=== PATIENT | female | born 1945 | race Caucasian/White ===

== ENCOUNTER 2020-06-13 13:21 | Outpatient (CLI) | payer MEDICARE, SELFPAY ==
--- NOTE | 2020-06-13 13:37 | XR_ITS ---
WS: [id number] DEXA (DUAL ENERGY X-RAY ABSORPTIOMETRY) Bone mineral density was performed using a [employer] machine. HISTORY: POST MENOPAUSAL COMPARISON: None available. Lumbar spine BMD (L1-L4): 1.179 g/cm2 T score: 0.0 Z score: 1.5 Total hip BMD: Left: 0.901 g/cm2. T score: -0.9 Z score: 0.6 Right: 0.945 g/cm2. T score: -0.5 Z score: 1.0 10 year probability of a major osteoporotic fracture is 9%. XR/XR DEXA axial skeleton* [id number] IMPRESSION: NORMAL BONE MINERAL DENSITY based upon the WHO classification for females.
== END 2020-06-13 13:22 | disposition home or self-care (01) ==
LOC: RADWPI 13:27
PROVIDERS: Family Provider Family Medicine; PCP Family Medicine; Visit Provider Family Medicine
DX: Z78.0 Asymptomatic menopausal state (principal)
CPT/HCPCS: 77080

== ENCOUNTER 2020-07-18 09:27 | Outpatient (CLI) | payer MEDICARE, SELFPAY ==
[2020-07-18 12:34] LABS: Basophils % 0.5 %; Eosinophils % 0.2 %; Hematocrit 37.7 % (37.0-47.0); Hemoglobin 11.6 g/dL (11.5-15.3); Lymphocytes # 1.9 10^3/uL (0.8-4.8); Lymphocytes % 32.5 %; Mean Corpuscular HGB Conc 30.8 g/dL (30.0-36.0); Mean Corpuscular Hemoglobin 28.4 pg (28.0-34.0); Mean Corpuscular Volume 92.2 fL (81-99); Monocytes # 0.5 10^3/uL (0.2-0.9); Monocytes % 8.4 %; Neutrophils # 3.32 10^3/uL (1.8-7.7); Neutrophils % 58.2 %; Nucleated Red Blood Cells % 0 %; Platelet Count 279 10^3/cmm (130-400); Red Blood Count 4.09 10^6/uL (4.1-5.3); Red Cell Distribution Width 13.6 % (12.1-15.1); White Blood Count 5.7 10^3/uL (4.0-10.0)
[2020-07-18 12:54] LABS: Alanine Aminotransferase 20 U/L (0-33); Albumin Level 4.4 g/dL (3.5-5.2); Alkaline Phosphatase 103 IU/L (35-105); Chloride 106 mmol/L (98-107); Immunoglobulin IGA 81 mg/dL (70-400); Immunoglobulin IGG 670 mg/dL (700-1600); Lactate Dehydrogenase 126 U/L (135-214); Potassium 4.4 mmol/L (3.5-5.1); Sodium 141 mmol/L (136-145)
[2020-07-18 14:15] LABS: Anion Gap 16.4 (5-19); Aspartate Amino Transferase 25 U/L (0-32); Blood Urea Nitrogen 20 mg/dL (8-23); Calcium 10.1 mg/dL (8.5-10.5); Carbon Dioxide 23 mmol/L (22-29); Globulin 4.4 g/dL (1.3-4.6); Glucose 91 mg/dL (65-115); Osmolality Calculated 294 mOsm/kg (285-295); Total Bilirubin 0.4 mg/dL (0.15-1.2); Total Protein 8.8 g/dL (6.6-8.7)
[2020-07-18 15:20] LABS: Erythrocyte Sedimentation Rate 111 mm/hr (0-15)
--- NOTE | 2020-07-18 17:26 | ONC CON_ITS ---
Dr. Dove New Patient Note Patient: Naima Chacon Unit #: [id number]: [id number] Dicatated By: Marty Dove M.D.Date of Visit: Jul 18, 2020 Onc MED New Patient/Consult Referring Physician: Dr. KEI MURRY M.D. Chief Complaint: Monoclonal gammopathy. 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 This patient has hyperlipidemia and GERD. She has been in excellent general health. On her routine laboratory studies she was found to have elevations of the total protein and calculated serum globulin. Further evaluation with protein electrophoresis on 05/15/2020 showed a M spike quantitating at 1.9 g/dL. On immunoelectrophoresis, it was confirmed to be an IgM kappa monoclonal protein. Her surim free light chain assay showed normal kappa free light chain at 5.39 mg/L but with elevated kappa/lambda ratio at 18.59. Her CBC at that time showed normal hemoglobin at 12.4 g with hematocrit 37.4%. The white blood cell count was 7600 and the platelet count was 313,000. She has been feeling good generally. She has good energy and she has normal activity. ECOG score is 0. Appetite also has been good. Her weight is been stable. She has no fever, night sweats, or hot flashes. She does not complain of headache or dizziness. She has no shortness of breath, cough, or chest pain. She has no GI or complaints. She occasionally has some low back pain. She has no other joint or bone pain. She has no focal neurologic symptoms. Past Medical History: Her medical history includes fatty liver, gastroesophageal reflux disease, and hypercholesterolemia. Past Surgical History: Her surgical/procedural history includes bladder sling, colonoscopy in 2008, and tubal ligation in 1980. Medications: Docusate Sodium 1 Tablet (of 100 mg) Oral daily, Famotidine 1 Tablet (of 10 mg) Oral daily, Rosuvastatin Calcium 1 Tablet (of 5 mg) Oral daily Allergies: Tylenol with Codeine #3 Social History: Ms. Chacon is . She has a history of smoking 2 packs of cigarettes daily beginning at age 21. She also had alcohol use at that time. She quit both at age 30. Family History: Father in his 60s with a heart attack. Mother with lung cancer at age 82. A half-brother has diabetes. A half-sister is in good health. Review Of Symptoms: Constitutional - She is feeling good and her energy is good. She has normal activity without restrictions. Her appetite is good and weight is stable. No fever, night sweats, or hot flashes. ECOG score is 0, Eyes - No change in vision, ENMT - No hearing loss or tinnitus. No sinus congestion/drainage. No mouth sores. No sore throat or difficulty swallowing, Hematologic/Lymphatic - No abnormal bruising or bleeding, Respiratory - No shortness of breath. No cough. No pleuritic pain or hemoptysis, Cardiovascular - No angina pain. No palpitations, Gastrointestinal - No nausea or vomiting. Her acid reflux is adequately managed with medication.. No diarrhea or constipation. No blood in the stool or black stools, Genitourinary (F) - No dysuria or hematuria. No urinary frequency. No urgency or incontinence, Musculoskeletal - She occasionally has low back pain. No other joint or bone pain, Integumentary - No skin complications, Neurologic - No headache or dizziness. No numbness or tingling. No other focal neurologic symptoms, Psychiatric - No anxiety or depression. No insomnia. Vital Signs: Performed on Jul 18, 2020 11:26: 0, 24.33, 1.86 sq.m, 68.00 in, 97 %, 62 /min, 18 /min, 149/69 mm(hg) (HIGH), 98.0 F (LOW), and 160.0 lbs (HIGH). Physical Examination: Constitutional - She appears to be in good general health, Eyes - Sclerae nonicteric. Conjunctivae clear, ENMT - No lesions noted in the oral cavity, Neck - No mass or thyromegaly, Hematologic/Lymphatic - No cervical, clavicular, or axillary adenopathy, Respiratory - Lungs are clear with good air movement bilaterally, Cardiovascular - Heart rhythm is regular. There is no murmur, gallop, or rub noted, Abdomen - Soft and non-tender. Liver and spleen are not enlarged. There is no abdominal mass or ascites noted and there is no inguinal adenopathy, Back/Spine - No spine or CVA tenderness noted, Extremities - No edema. Pedal pulses are palpable bilaterally, Integumentary - No rashes. No suspicious skin lesions noted, Neurologic - No focal neurologic deficits noted. Impression: 1. Patient with IgM monoclonal gammopathy of undetermined significance. She is not symptomatic. 2. Hyperlipidemia. 3. GERD. 4. Fatty infiltration of the liver. Plan: The laboratory findings were reviewed with the patient and we discussed the clinical implications. She has an IgM monoclonal protein in the serum. She is completely asymptomatic, and the significance is uncertain. We discussed the fact that it can be associated with Waldenstrom's macroglobulinemia or other myeloproliferative disorders, but monoclonal proteins can also be seen in association with inflammatory conditions or and otherwise healthy individuals. At least initially I will repeat her serum protein electrophoresis along with serum free light chain assay, quantitative immunoglobulin levels, CBC, comprehensive metabolic profile, sed rate, and LDH level. Depending on those results, I will likely then schedule her for CT scans to screen for lymphadenopathy. In the absence of any clinical evidence of lymphoma, I will likely then just follow on observation/expectant management, as I am not inclined to do a bone marrow if she is completely asymptomatic. Signed By: Marty Dove M.D. <<Signature on File>>
[2020-07-19 08:17] LABS: PROTEIN, TOTAL 8.5 g/dL (6.1-8.1)
[2020-07-19 12:48] LABS: ABNORMAL PROTEIN BAND 1 1.9 g/dL (NONE DETECTED); ALBUMIN 4.3 g/dL (3.8-4.8); ALPHA 1 GLOBULIN 0.3 g/dL (0.2-0.3); ALPHA 2 GLOBULIN 0.9 g/dL (0.5-0.9); BETA 1 GLOBULIN 0.4 g/dL (0.4-0.6); BETA 2 GLOBULIN 0.3 g/dL (0.2-0.5); GAMMA GLOBULIN 2.3 g/dL (0.8-1.7)
[2020-07-19 16:17] LABS: KAPPA/LAMBDA LIGHT CHAINS FREE 2.84 (0.26-1.65); LAMBDA LIGHT CHAIN, FREE, SERU 7.4 mg/L (5.7-26.3)
== END 2020-07-18 09:28 | disposition home or self-care (01) ==
PROVIDERS: PCP Family Medicine; Visit Provider Internal Medicine Medical Oncology
DX: D47.2 Monoclonal gammopathy (principal); E78.5 Hyperlipidemia, unspecified; K21.9 Gastro-esophageal reflux disease without esophagitis; K76.0 Fatty (change of) liver, not elsewhere classified; Z87.891 Personal history of nicotine dependence
CPT/HCPCS: 80053; 82784; 83615; 83883; 84155; 84165; 85025; 85651; 99205

== ENCOUNTER 2020-08-01 11:57 | Outpatient (CLI) | payer MEDICARE, SELFPAY ==
--- NOTE | 2020-08-01 12:14 | CT_ITS ---
WS: [id number] CT CHEST, ABDOMEN, AND PELVIS TECHNIQUE: Contrast-enhanced CT of the chest, abdomen, and pelvis with coronal and sagittal reformatt ed images. CLINICAL INFORMATION: LYMPHOPROLIFERATIVE COMPARISON: None. DLP: [address] scans at [facility] use at least one of these dose optimization techniques: automat ed exposure control; mA and/or kV adjustment per patient size (includes targeted exams where dose is matched to clinical indication); or iterative reconstruction. CT CHEST: Mild chronic emphysematous changes. No acute pulmonary infiltrates. No consolidation or pleural fluid . Slight atelectasis in the lung bases. No mediastinal or hilar lymphadenopathy. Small upper pole thy roid nodules the largest measuring 4 mm. Normal caliber thoracic aorta. Aortic calcification. Proxim al main pulmonary arteries are normal. No axillary lymphadenopathy. CT ABDOMEN AND PELVIS: Mild diffuse fatty infiltration liver. Portal veins and splenic vein are patent. Normal GE junction. Gallbladder is contracted. Adrenal glands are normal. Right renal cyst measuring 2.5 CM. Left peripel yancy renal cyst. Normal pancreas. Normal spleen. Fat-containing umbilical hernia. Sigmoid diverticulosis. No evidence of acute diverticulitis. Scattered stool in the colon. No evidenc e of small or large bowel obstruction. Normal appendix. Normal caliber abdominal aorta. No periaortic or pelvic lymphadenopathy. No inguinal lymphadenopathy. CT/CT chest abd pel w con* IMPRESSION: 1. No evidence of metastatic disease in the chest abdomen or pelvis. 2. Lungs are well aerated. No acute pulmonary infiltrates. 3. No adenopathy in the abdomen or pelvis. 4. Mild diffuse fatty infiltration of the liver. 5. Right renal cyst measuring 2.5 cm. 6. Normal caliber abdominal aorta. 7. Incidental fat-containing umbilical hernia. 8. Sigmoid diverticulosis.
[2020-08-01] MEDS: iohexol 300 mg/mL 50 mL Btl PO (13:52)
[2020-08-01] MEDS: iodixanol 320 mg/mL 100mL Btl IV (13:56)
== END 2020-08-01 11:58 | disposition home or self-care (01) ==
LOC: RADWPI 12:02
PROVIDERS: PCP Family Medicine; Visit Provider Internal Medicine Medical Oncology
DX: D47.2 Monoclonal gammopathy (principal); D47.9 Neoplasm of uncertain behavior of lymphoid, hematopoietic and related tissue, unspecified; K76.0 Fatty (change of) liver, not elsewhere classified; N28.1 Cyst of kidney, acquired; K42.9 Umbilical hernia without obstruction or gangrene; K57.30 Diverticulosis of large intestine without perforation or abscess without bleeding
CPT/HCPCS: 71260; 74177; Q9967

== ENCOUNTER 2020-08-09 10:10 | Outpatient (CLI) | payer MEDICARE, SELFPAY ==
[2020-08-09 11:02] LABS: Basophils % 0.7 %; Eosinophils % 0.2 %; Hematocrit 34.9 % (37.0-47.0); Lymphocytes # 1.8 10^3/uL (0.8-4.8); Lymphocytes % 32.5 %; Mean Corpuscular HGB Conc 31.5 g/dL (30.0-36.0); Mean Corpuscular Hemoglobin 28.9 pg (28.0-34.0); Mean Corpuscular Volume 91.8 fL (81-99); Monocytes # 0.6 10^3/uL (0.2-0.9); Monocytes % 10.1 %; Neutrophils # 3.13 10^3/uL (1.8-7.7); Neutrophils % 56.1 %; Nucleated Red Blood Cells % 0 %; Platelet Count 262 10^3/cmm (130-400); Red Cell Distribution Width 13.3 % (12.1-15.1); White Blood Count 5.6 10^3/uL (4.0-10.0)
[2020-08-09 11:45] LABS: Erythrocyte Sedimentation Rate 104 mm/hr (0-15)
[2020-08-09 11:50] LABS: Alanine Aminotransferase 25 U/L (0-33); Albumin Level 4.1 g/dL (3.5-5.2); Alkaline Phosphatase 113 IU/L (35-105); Anion Gap 13.1 (5-19); Aspartate Amino Transferase 23 U/L (0-32); Blood Urea Nitrogen 23 mg/dL (8-23); Calcium 9.3 mg/dL (8.5-10.5); Carbon Dioxide 26 mmol/L (22-29); Chloride 104 mmol/L (98-107); Globulin 3.8 g/dL (1.3-4.6); Glucose 102 mg/dL (65-115); Iron 76 ug/dL (37-145); Osmolality Calculated 292 mOsm/kg (285-295); Percent Saturation 29.9 % (20-50); Potassium 4.1 mmol/L (3.5-5.1); Sodium 139 mmol/L (136-145); Total Bilirubin 0.4 mg/dL (0.15-1.2); Total Iron Binding Capacity 254 mcg/dl; Total Protein 7.9 g/dL (6.6-8.7); Unsaturated Iron Binding 178 ug/dL (112-347); Vitamin B12 467 pg/mL (232-1245)
[2020-08-10 08:58] LABS: PROTEIN, TOTAL 7.7 g/dL (6.1-8.1)
[2020-08-10 12:33] LABS: ABNORMAL PROTEIN BAND 1 1.7 g/dL (NONE DETECTED); ALBUMIN 3.9 g/dL (3.8-4.8); ALPHA 1 GLOBULIN 0.3 g/dL (0.2-0.3); ALPHA 2 GLOBULIN 0.8 g/dL (0.5-0.9); BETA 1 GLOBULIN 0.4 g/dL (0.4-0.6); BETA 2 GLOBULIN 0.3 g/dL (0.2-0.5)
== END 2020-08-09 10:11 | disposition home or self-care (01) ==
LOC: ONCMED 10:12
PROVIDERS: PCP Family Medicine; Visit Provider Internal Medicine Medical Oncology
DX: D47.2 Monoclonal gammopathy (principal); E78.00 Pure hypercholesterolemia, unspecified; E78.5 Hyperlipidemia, unspecified; K21.9 Gastro-esophageal reflux disease without esophagitis; K76.0 Fatty (change of) liver, not elsewhere classified
CPT/HCPCS: 36415; 80053; 82607; 83010; 83540; 83550; 84155; 84165; 85025; 85045; 85651

== ENCOUNTER 2020-08-22 06:16 | Outpatient (CLI) | payer MEDICARE, SELFPAY ==
--- NOTE | 2020-08-22 18:10 | ONC FU_ITS ---
Dr. Dove Patient Follow-Up Note Patient: Naima Chacon Unit #: [id number]: [id number] Dicatated By: Marty Dove M.D.Date of Visit:Aug 22, 2020 Onc Med Follow-up/Prog Note Chief Complaint: IgM monoclonal gammopathy. 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 She has been in excellent general health. On her routine laboratory studies she was found to have elevations of the total protein and calculated serum globulin. Further evaluation with protein electrophoresis on 05/15/2020 showed an M spike quantitating at 1.9 g/dL. On immunoelectrophoresis, it was confirmed to be an IgM kappa monoclonal protein. Her serum free light chain assay showed normal kappa free light chain at 5.39 mg/L but with elevated kappa/lambda ratio at 18.59. Her CBC at that time showed normal hemoglobin at 12.4 g with hematocrit 37.4%. The white blood cell count was 7600 and the platelet count was 313,000. I had seen her initially on 07/18/2020. Her CBC showed slightly low hemoglobin at 11.6 g with white blood cell count 5700 and platelet count 279,000. Her sed rate was significantly elevated at 111 mm/hour. Comprehensive metabolic profile showed borderline renal function with BUN 20 and creatinine 1.0 mg/dL. Calcium was 10.1 mg/dL with albumin 4.3 g/dL. The LDH was normal at 126 U/L. Her protein electrophoresis again showed monoclonal protein quantitating at 1.9 g/dL. Her quantitative immunoglobulin levels included IgM elevated at 2854 mg/dL, IgG slightly low at 670 mg/dL, and IgA normal at 81 mg/dL. She was not overtly symptomatic, I had initially recommended observation/expectant management. She is seen now for a follow-up visit. She is feeling good generally. She has good energy and activity tolerance. Her ECOG score is 0. She had made some dietary changes due to borderline diabetes, and she has had some weight loss with that. She does not have fever, night sweats, or hot flashes. She has no shortness of breath, cough, or chest pain. She has no GI or complaints. She sees a chiropractor once a month for problems with her neck and hip, though she is not having any joint or bone pain at this time. She does not complain of headache or dizziness, and she has no focal neurologic symptoms. Medications: Docusate Sodium 1 Tablet (of 100 mg) Oral daily, Famotidine 1 Tablet (of 10 mg) Oral daily, Rosuvastatin Calcium 1 Tablet (of 5 mg) Oral daily Allergies: Tylenol with Codeine #3 Review of Systems: Constitutional - She has good energy and activity tolerance. Her appetite is good. She has had weight loss due to dietary changes. No fever, night sweats, or hot flashes. ECOG score is 0, ENMT - No sinus congestion/drainage. No mouth sores. No sore throat or difficulty swallowing, Hematologic/Lymphatic - No abnormal bruising or bleeding, Respiratory - No shortness of breath. No cough. No pleuritic pain or hemoptysis, Cardiovascular - No angina pain. No palpitations, Gastrointestinal - No nausea or vomiting. No heartburn or acid reflux. No diarrhea or constipation. No blood in the stool or black stools, Genitourinary (F) - No dysuria or hematuria. No urinary frequency. No urgency or incontinence, Musculoskeletal - She sees a chiropractor once a month for problems with her neck and both hips, though she currently is not having any joint or bone pain, Integumentary - No skin rash, Neurologic - No headache or dizziness. No numbness or tingling. No other focal neurologic symptoms, Psychiatric - No anxiety or depression. No insomnia. Vital Signs: Performed on Aug 22, 2020 14:21 Height - 68.00 in Weight - 158.6 lbs (LOW) BSA - 1.85 sq.m BMI - 24.12 Temperature - 98.0 F (LOW) Pulse - 67 /min Respiration - 18 /min BP - 147/63 mm(hg) (HIGH) O2 Sat - 99 % Pain - 0 Physical Examination: Constitutional - Good generally, Eyes - Sclerae nonicteric. Conjunctivae clear, ENMT - No lesions noted in the oral cavity, Hematologic/Lymphatic - No cervical, clavicular, or axillary adenopathy, Respiratory - Lungs are clear with good air movement bilaterally, Cardiovascular - Heart rhythm is regular. There is no murmur, gallop, or rub noted, Abdomen - Soft. Liver and spleen are not enlarged. There is no abdominal mass or ascites noted and there is no inguinal adenopathy, Extremities - No edema, Neurologic - No focal neurologic deficits noted. Lab/Imaging: Test performed on Aug 09, 2020 10:47 Iron 76 mcg/dL Sodium 139 mmol/L Vitamin B12 467 pg/mL Iron Binding Capacity (TIBC) 254 mcg/dl Potassium 4.1 mmol/L % Iron Saturation 29.9 % Chloride 104 mmol/L CO2 26 mmol/L UIBC 178 mcg/dL Anion Gap 13.1 BUN 23 mg/dL Creatinine 0.9 mg/dL Cr Clearance (Est) 64.7400 mL/min Glucose 102 mg/dL Osmolality - Calculated 292 mOsm/kg Calcium 9.3 mg/dL Protein, Total 7.9 g/dL Albumin 4.1 g/dL Globulin 3.8 g/dL Bilirubin, Total 0.4 mg/dL ALT (SGPT) 25 U/L AST (SGOT) 23 U/L Alkaline Phosphatase 113 IU/L ESR (Sed Rate) 104 mm/hr Retic Count % 1.0900 % WBC 5.6 10 3/uL RBC 3.80 10 6/uL HGB 11.0 g/dL HCT 34.9 % MCV 91.8 fL MCH 28.9 pg MCHC 31.5 g/dL RDW 13.3 % Platelet Count 262 10 3/cmm MPV 10.0 fL Neutrophils 3.13 10 3/uL Lymphocytes 1.8 10 3/uL Monocytes 0.6 10 3/uL Eosinophils 0.0 10 3/uL Basophils 0.0 10 3/uL Neutrophil % 56.1 % Lymphocyte % 32.5 % Monocyte % 10.1 % Eosinophil % 0.2 % Basophils % 0.7 % NRBC % 0 % Staging CT scans on 08/01/2020 showed fatty infiltration of the liver. The spleen appeared normal. There was no lymphadenopathy or other evidence of malignancy in the chest, abdomen, and pelvis. Impression: 1. Patient with IgM monoclonal gammopathy of undetermined significance. She is not symptomatic. 2. Hyperlipidemia. 3. GERD. 4. Fatty infiltration of the liver. The patient has IgM monoclonal gammopathy of undetermined significance. She is not symptomatic, and there has not been any increase in the quantitative M protein since the initial protein electrophoresis. However, she is now mildly anemic and she has a very high sed rate, so this may be clinically significant. Her staging CT scans of the chest, abdomen, and pelvis show lymphadenopathy, hepatosplenomegaly, or other evidence of malignancy. Plan: As she is not symptomatic, I am going to continue to follow with observation/expectant management. However, if there is further decrease in her hemoglobin/hematocrit levels or if she otherwise develops symptoms, I will plan further evaluation with bone marrow aspiration/biopsy. At least for she will just be scheduled for a follow-up visit in 3 months. Signed By: Marty Dove M.D. <<Signature on File>>
== END 2020-08-22 06:17 | disposition home or self-care (01) ==
LOC: ONCMED 06:18
PROVIDERS: PCP Family Medicine; Visit Provider Internal Medicine Medical Oncology
DX: D47.2 Monoclonal gammopathy (principal); D64.9 Anemia, unspecified; R70.0 Elevated erythrocyte sedimentation rate; E78.5 Hyperlipidemia, unspecified; K21.9 Gastro-esophageal reflux disease without esophagitis; K76.0 Fatty (change of) liver, not elsewhere classified
CPT/HCPCS: G0463

== ENCOUNTER 2020-09-25 08:47 | Outpatient (CLI) | payer MEDICARE, SELFPAY ==
--- NOTE | 2020-09-25 08:51 | MM_ITS ---
WS: [id number] BILATERAL DIGITAL SCREENING MAMMOGRAPHY WITH CAD CLINICAL INFORMATION: SCREENING HISTORY: Screening mammogram. No current complaints. COMPARISON: TECHNIQUE: Bilateral CC and MLO views. FINDINGS: Scattered fibroglandular densities bilaterally. No suspicious focal mass, asymmetry, calcifications, or architectural distortion. No evidence of malignancy. Lucent centered calcifications. Vascular calc ifications. MM/[place] [id number] IMPRESSION: BI-RADS: 2-Benign FOLLOW UP: 1 Year Follow-up Recommend return to annual screening mammography.
== END 2020-09-25 08:48 | disposition home or self-care (01) ==
LOC: RADSHAW 08:49
PROVIDERS: PCP Family Medicine; Visit Provider Internal Medicine Medical Oncology
DX: Z12.31 Encounter for screening mammogram for malignant neoplasm of breast (principal)
CPT/HCPCS: 77067

== ENCOUNTER 2020-11-21 07:35 | Outpatient (CLI) | payer MEDICARE, SELFPAY ==
[2020-11-21 08:48] LABS: Basophils % 0.7 %; Eosinophils % 0.5 %; Hemoglobin 11.8 g/dL (11.5-15.3); Lymphocytes # 1.4 10^3/uL (0.8-4.8); Lymphocytes % 32.5 %; Mean Corpuscular HGB Conc 31.9 g/dL (30.0-36.0); Mean Corpuscular Hemoglobin 28.6 pg (28.0-34.0); Mean Corpuscular Volume 89.8 fL (81-99); Mean Platelet Volume 9.9 fL (7.4-10.4); Monocytes # 0.4 10^3/uL (0.2-0.9); Monocytes % 8.6 %; Neutrophils # 2.47 10^3/uL (1.8-7.7); Neutrophils % 57.2 %; Nucleated Red Blood Cells % 0 %; Platelet Count 260 10^3/cmm (130-400); Red Blood Count 4.12 10^6/uL (4.1-5.3); Red Cell Distribution Width 12.9 % (12.1-15.1); White Blood Count 4.3 10^3/uL (4.0-10.0)
[2020-11-21 08:50] LABS: LAB Peripheral Smear Sent for Review
[2020-11-21 09:33] LABS: Alanine Aminotransferase 23 U/L (0-33); Alkaline Phosphatase 117 IU/L (35-105); Anion Gap 12.1 (5-19); Aspartate Amino Transferase 26 U/L (0-32); Blood Urea Nitrogen 18 mg/dL (8-23); Calcium 9.3 mg/dL (8.5-10.5); Carbon Dioxide 26 mmol/L (22-29); Chloride 105 mmol/L (98-107); Globulin 4.2 g/dL (1.3-4.6); Glucose 91 mg/dL (65-115); Lactate Dehydrogenase 124 U/L (135-214); Osmolality Calculated 289 mOsm/kg (285-295); Potassium 4.1 mmol/L (3.5-5.1); Sodium 139 mmol/L (136-145); Total Bilirubin 0.4 mg/dL (0.15-1.2); Total Protein 8.2 g/dL (6.6-8.7)
[2020-11-21 10:26] LABS: Erythrocyte Sedimentation Rate 99 mm/hr (0-15)
[2020-11-21 11:28] LABS: Estmated Average Glucose 105; Hemoglobin A1C 5.3 % (4.0-6.0)
[2020-11-21 11:30] LABS: Immunoglobulin IGA 71 mg/dL (70-400); Immunoglobulin IGG 612 mg/dL (700-1600)
[2020-11-21 11:47] LABS: Immunoglobulin IGM 2776 mg/dL (40-230)
[2020-11-22 10:33] LABS: PROTEIN, TOTAL 7.5 g/dL (6.1-8.1)
[2020-11-22 14:38] LABS: ABNORMAL PROTEIN BAND 1 1.7 g/dL (NONE DETECTED); ALBUMIN 3.8 g/dL (3.8-4.8); ALPHA 1 GLOBULIN 0.3 g/dL (0.2-0.3); ALPHA 2 GLOBULIN 0.8 g/dL (0.5-0.9); BETA 1 GLOBULIN 0.4 g/dL (0.4-0.6); BETA 2 GLOBULIN 0.3 g/dL (0.2-0.5)
== END 2020-11-21 07:36 | disposition home or self-care (01) ==
LOC: ONCMED 07:38
PROVIDERS: PCP Family Medicine; Visit Provider Internal Medicine Medical Oncology
DX: D47.2 Monoclonal gammopathy (principal); E11.9 Type 2 diabetes mellitus without complications
CPT/HCPCS: 36415; 80053; 82784; 83036; 83615; 84155; 84165; 85025; 85651

== ENCOUNTER 2020-12-19 07:57 | Outpatient (CLI) | payer MEDICARE, SELFPAY ==
[2020-12-19 08:35] LABS: Basophils % 0.8 %; Eosinophils # 0.1 10^3/uL (0.0-0.8); Hematocrit 37.7 % (37.0-47.0); Hemoglobin 11.9 g/dL (11.5-15.3); Lymphocytes # 1.5 10^3/uL (0.8-4.8); Lymphocytes % 29.4 %; Mean Corpuscular HGB Conc 31.6 g/dL (30.0-36.0); Mean Corpuscular Hemoglobin 28.3 pg (28.0-34.0); Mean Corpuscular Volume 89.5 fL (81-99); Mean Platelet Volume 9.5 fL (7.4-10.4); Monocytes # 0.4 10^3/uL (0.2-0.9); Monocytes % 8.9 %; Neutrophils # 2.95 10^3/uL (1.8-7.7); Neutrophils % 59.7 %; Nucleated Red Blood Cells % 0 %; Platelet Count 300 10^3/cmm (130-400); Red Blood Count 4.21 10^6/uL (4.1-5.3); Red Cell Distribution Width 13.2 % (12.1-15.1); White Blood Count 4.9 10^3/uL (4.0-10.0)
[2020-12-19 08:59] LABS: Alanine Aminotransferase 18 U/L (0-33); Albumin Level 3.9 g/dL (3.5-5.2); Alkaline Phosphatase 121 IU/L (35-105); Anion Gap 13.2 (5-19); Aspartate Amino Transferase 19 U/L (0-32); Blood Urea Nitrogen 20 mg/dL (8-23); Carbon Dioxide 26 mmol/L (22-29); Chloride 103 mmol/L (98-107); Chol HDL Ratio 2.07 mg/dL (0.0-4.40); Cholesterol 155 mg/dL (0-200); Globulin 4.5 g/dL (1.3-4.6); Glucose 90 mg/dL (65-115); HDL Cholesterol 75 mg/dL (60-100); Immunoglobulin IGA 82 mg/dL (70-400); Immunoglobulin IGG 617 mg/dL (700-1600); LDL Cholesterol Calculated 62 mg/dL (50-129); LDL HDL Ratio 0.83 RATIO (0.00-3.22); Osmolality Calculated 288 mOsm/kg (285-295); Potassium 4.2 mmol/L (3.5-5.1); Sodium 138 mmol/L (136-145); Total Bilirubin 0.3 mg/dL (0.15-1.2); Total Protein 8.4 g/dL (6.6-8.7); Triglycerides 89 mg/dL (0-150)
[2020-12-19 09:03] LABS: Estmated Average Glucose 91; Hemoglobin A1C 4.8 % (4.0-6.0)
[2020-12-19 09:11] LABS: Immunoglobulin IGM 2709 mg/dL (40-230)
== END 2020-12-19 07:58 | disposition home or self-care (01) ==
PROVIDERS: PCP Family Medicine; Visit Provider Internal Medicine Medical Oncology
DX: D47.2 Monoclonal gammopathy (principal)
CPT/HCPCS: 80053; 80061; 82784; 83036; 85025

== ENCOUNTER 2020-12-27 06:07 | Outpatient (CLI) | payer MEDICARE, SELFPAY ==
--- NOTE | 2020-12-27 21:09 | ONC FU_ITS ---
Dr. Dove Patient Follow-Up Note Patient: Naima Chacon Unit #: [id number]: [id number] Dicatated By: Marty Dove M.D.Date of Visit:Dec 27, 2020 Onc Med Follow-up/Prog Note Chief Complaint: IgM monoclonal gammopathy. History of Present Illness: This is a 75 year-old woman with IgM monoclonal gammopathy. She has been in excellent general health. On her routine laboratory studies she was found to have elevations of the total protein and calculated serum globulin. Further evaluation with protein electrophoresis on 05/15/2020 showed an M spike quantitating at 1.9 g/dL. On immunoelectrophoresis, it was confirmed to be an IgM kappa monoclonal protein. Her serum free light chain assay showed normal kappa free light chain at 5.39 mg/L but with elevated kappa/lambda ratio at 18.59. Her CBC at that time showed normal hemoglobin at 12.4 g with hematocrit 37.4%. The white blood cell count was 7600 and the platelet count was 313,000. I had seen her initially on 07/18/2020. Her CBC showed slightly low hemoglobin at 11.6 g with white blood cell count 5700 and platelet count 279,000. Her sed rate was significantly elevated at 111 mm/hour. Comprehensive metabolic profile showed borderline renal function with BUN 20 and creatinine 1.0 mg/dL. Calcium was 10.1 mg/dL with albumin 4.3 g/dL. The LDH was normal at 126 U/L. Her protein electrophoresis again showed monoclonal protein quantitating at 1.9 g/dL. Her quantitative immunoglobulin levels included IgM elevated at 2854 mg/dL, IgG slightly low at 670 mg/dL, and IgA normal at 81 mg/dL. Her CT scans of the chest, abdomen, and pelvis on 08/01/2020 showed mild diffuse fatty infiltration of the liver, but there was no evidence of lymphadenopathy or hepatosplenomegaly. As she was not overtly symptomatic, I had initially recommended observation/expectant management. On her follow-up laboratory studies on 11/21/2000 she remained mildly anemic with hemoglobin 11.8 g and hematocrit 37%. The white blood cell count was 4300 and the platelet count was 260,000. Sed rate remains significantly elevated at 99 mm/h. LDH was normal at 124 U/L. Protein electrophoresis showed stable M protein at 1.7 g/dL. Her quantitative immunoglobulin levels showed IgM also stable at 2776 mg/dL. She is seen now for a follow-up visit. She has been feeling good generally. She has normal energy and activity tolerance. ECOG score is 0. She has good appetite. She has not had fever or night sweats. She has just occasional hot flashes. She has no shortness of breath, cough, or chest pain. She has no GI or complaints. She has some mild discomfort associated with a hammertoe deformity in her right foot. She has no other joint or bone pain. She does not complain of headache or dizziness. She has no numbness/paresthesia or other focal neurologic symptoms. Medications: Docusate Sodium 1 Tablet (of 100 mg) Oral daily, Famotidine 1 Tablet (of 10 mg) Oral daily, Rosuvastatin Calcium 1 Tablet (of 5 mg) Oral daily Allergies: Tylenol with Codeine #3 Vital Signs: Performed on Dec 27, 2020 10:21 Height - 68.00 in Weight - 160.6 lbs (HIGH) BSA - 1.86 sq.m BMI - 24.42 Temperature - 99.1 F (HIGH) Pulse - 86 /min Respiration - 18 /min BP - 182/82 mm(hg) (HIGH) O2 Sat - 99 % Pain - 0 Fatigue - 0 Physical Examination: Constitutional - She looks good generally, Eyes - Sclerae nonicteric. Conjunctivae clear, ENMT - No lesions noted in the oral cavity, Hematologic/Lymphatic - No cervical, clavicular, or axillary adenopathy, Respiratory - Lungs are clear with good air movement bilaterally, Cardiovascular - Heart rhythm is regular. There is no murmur, gallop, or rub noted, Abdomen - Soft. Liver and spleen are not enlarged. There is no abdominal mass or ascites noted and there is no inguinal adenopathy, Extremities - No edema. Pedal pulses are palpable bilaterally, Neurologic - No focal neurologic deficits noted. Lab/Imaging: Test performed on Dec 19, 2020 08:10 Cholesterol, Total 155 mg/dL Sodium 138 mmol/L Potassium 4.2 mmol/L Triglycerides 89 mg/dL Chloride 103 mmol/L Est Avg Glucose (eAG) 91 mg/dL LDL Cholesterol 62 mg/dL CO2 26 mmol/L Anion Gap 13.2 HDL Cholesterol 75 mg/dL BUN 20 mg/dL Cholesterol/HDL Ratio 2.07 mg/dL Creatinine 1.0 mg/dL LDL / HDL Ratio 0.83 RATIO Cr Clearance (Est) 56.9000 mL/min Glucose 90 mg/dL Osmolality - Calculated 288 mOsm/kg Calcium 9.0 mg/dL Protein, Total 8.4 g/dL Albumin 3.9 g/dL Globulin 4.5 g/dL Bilirubin, Total 0.3 mg/dL ALT (SGPT) 18 U/L AST (SGOT) 19 U/L Alkaline Phosphatase 121 IU/L Hemoglobin A1C % 4.8 % WBC 4.9 10 3/uL RBC 4.21 10 6/uL HGB 11.9 g/dL HCT 37.7 % MCV 89.5 fL MCH 28.3 pg MCHC 31.6 g/dL RDW 13.2 % Platelet Count 300 10 3/cmm MPV 9.5 fL Neutrophils 2.95 10 3/uL Lymphocytes 1.5 10 3/uL Monocytes 0.4 10 3/uL Eosinophils 0.1 10 3/uL Basophils 0.0 10 3/uL Neutrophil % 59.7 % Lymphocyte % 29.4 % Monocyte % 8.9 % Eosinophil % 1.0 % Basophils % 0.8 % NRBC % 0 % IgG 617 mg/dL IgA 82 mg/dL IgM 2709 mg/dL Problem List: 1. Patient with IgM monoclonal gammopathy of undetermined significance. 2. Hyperlipidemia. 3. GERD. 4. Fatty infiltration of the liver. Problems Addressed with this Encounter and Plan: Patient with IgM monoclonal gammopathy of undetermined significance. She has not been symptomatic and there was no evidence of associated lymphadenopathy or hepatosplenomegaly by CT scan. Laboratory studies have shown mild anemia and significantly elevated sed rate. However, in the absence of any associated symptoms, she has been followed expectantly. Thus far her laboratory parameters have remained stable and she remains asymptomatic. As such, the clinical significance of the monoclonal gammopathy remains uncertain I will continue to follow her on observation/expectant management. She will be scheduled for repeat laboratory studies in 3 months and for a follow-up visit in 6 months. Signed By: Marty Dove M.D. <<Signature on File>>
== END 2020-12-27 06:08 | disposition home or self-care (01) ==
LOC: ONCMED 06:08
PROVIDERS: PCP Family Medicine; Visit Provider Internal Medicine Medical Oncology
DX: D47.2 Monoclonal gammopathy (principal); D64.9 Anemia, unspecified; R70.0 Elevated erythrocyte sedimentation rate; E78.5 Hyperlipidemia, unspecified; K21.9 Gastro-esophageal reflux disease without esophagitis; K76.0 Fatty (change of) liver, not elsewhere classified
CPT/HCPCS: G0463

== ENCOUNTER 2021-03-25 14:09 | Outpatient (CLI) | payer MEDICARE, SELFPAY ==
[2021-03-25 15:51] LABS: Basophils % 0.6 %; Eosinophils % 0.6 %; Hematocrit 34.6 % (37.0-47.0); Hemoglobin 11.1 g/dL (11.5-15.3); Lymphocytes # 2.3 10^3/uL (0.8-4.8); Lymphocytes % 37.2 %; Mean Corpuscular HGB Conc 32.1 g/dL (30.0-36.0); Mean Corpuscular Hemoglobin 28.3 pg (28.0-34.0); Mean Corpuscular Volume 88.3 fL (81-99); Monocytes # 0.5 10^3/uL (0.2-0.9); Monocytes % 7.6 %; Neutrophils # 3.33 10^3/uL (1.8-7.7); Neutrophils % 53.7 %; Nucleated Red Blood Cells % 0 %; Platelet Count 285 10^3/cmm (130-400); Red Blood Count 3.92 10^6/uL (4.1-5.3); Red Cell Distribution Width 13.7 % (12.1-15.1); White Blood Count 6.2 10^3/uL (4.0-10.0)
[2021-03-25 16:08] LABS: Alanine Aminotransferase 14 U/L (0-33); Albumin Level 4.2 g/dL (3.5-5.2); Alkaline Phosphatase 89 IU/L (35-105); Anion Gap 16.2 (5-19); Aspartate Amino Transferase 18 U/L (0-32); Blood Urea Nitrogen 24 mg/dL (8-23); Calcium 8.7 mg/dL (8.5-10.5); Carbon Dioxide 22 mmol/L (22-29); Chloride 105 mmol/L (98-107); Globulin 3.3 g/dL (1.3-4.6); Glucose 99 mg/dL (65-115); Immunoglobulin IGA 72 mg/dL (70-400); Immunoglobulin IGG 575 mg/dL (700-1600); Lactate Dehydrogenase 128 U/L (135-214); Osmolality Calculated 292 mOsm/kg (285-295); Potassium 4.2 mmol/L (3.5-5.1); Sodium 139 mmol/L (136-145); Total Bilirubin 0.2 mg/dL (0.15-1.2); Total Protein 7.5 g/dL (6.6-8.7)
[2021-03-25 16:27] LABS: Erythrocyte Sedimentation Rate 105 mm/hr (0-15)
[2021-03-25 16:33] LABS: Immunoglobulin IGM 2491 mg/dL (40-230)
[2021-03-26 08:38] LABS: PROTEIN, TOTAL 7.5 g/dL (6.1-8.1)
[2021-03-26 13:07] LABS: ABNORMAL PROTEIN BAND 1 1.7 g/dL (NONE DETECTED); ALBUMIN 3.8 g/dL (3.8-4.8); ALPHA 1 GLOBULIN 0.3 g/dL (0.2-0.3); ALPHA 2 GLOBULIN 0.8 g/dL (0.5-0.9); BETA 1 GLOBULIN 0.4 g/dL (0.4-0.6); BETA 2 GLOBULIN 0.3 g/dL (0.2-0.5)
== END 2021-03-25 14:10 | disposition home or self-care (01) ==
LOC: ONCMED 14:11
PROVIDERS: PCP Family Medicine; Visit Provider Internal Medicine Medical Oncology
DX: D47.2 Monoclonal gammopathy (principal); E78.5 Hyperlipidemia, unspecified; K21.9 Gastro-esophageal reflux disease without esophagitis; K76.0 Fatty (change of) liver, not elsewhere classified
CPT/HCPCS: 36415; 80053; 82784; 83615; 84155; 84165; 85025; 85651

== ENCOUNTER 2021-06-26 13:10 | Outpatient (CLI) | payer MEDICARE, SELFPAY ==
[2021-06-26 14:05] LABS: Basophils % 0.7 %; Eosinophils % 0.3 %; Hematocrit 33.9 % (37.0-47.0); Hemoglobin 11.1 g/dL (11.5-15.3); Lymphocytes # 2.2 10^3/uL (0.8-4.8); Lymphocytes % 36.3 %; Mean Corpuscular HGB Conc 32.7 g/dL (30.0-36.0); Mean Corpuscular Hemoglobin 28.8 pg (28.0-34.0); Mean Corpuscular Volume 88.1 fl (81-99); Monocytes # 0.5 10^3/uL (0.2-0.9); Monocytes % 8.2 %; Neutrophils % 54.3 %; Nucleated Red Blood Cells % 0 %; Platelet Count 265 10^3/cmm (130-400); Red Blood Count 3.85 10^6/uL (4.1-5.3); Red Cell Distribution Width 13.4 % (12.1-15.1); White Blood Count 6.1 10^3/uL (4.0-10.0)
[2021-06-26 14:42] LABS: Alanine Aminotransferase 14 U/L (0-33); Albumin Level 3.7 g/dL (3.5-5.2); Alkaline Phosphatase 102 IU/L (35-105); Anion Gap 15.9 (5-19); Aspartate Amino Transferase 18 U/L (0-32); Blood Urea Nitrogen 20 mg/dL (8-23); Calcium 8.6 mg/dL (8.5-10.5); Carbon Dioxide 23 mmol/L (22-29); Chloride 104 mmol/L (98-107); Glucose 103 mg/dL (65-115); Lactate Dehydrogenase 134 U/L (135-214); Osmolality Calculated 291 mOsm/kg (285-295); Potassium 3.9 mmol/L (3.5-5.1); Sodium 139 mmol/L (136-145); Total Bilirubin 0.3 mg/dL (0.15-1.2); Total Protein 7.7 g/dL (6.6-8.7)
[2021-06-26 17:58] LABS: Immunoglobulin IGA 67 mg/dL (70-400); Immunoglobulin IGG 568 mg/dL (700-1600)
[2021-06-26 18:09] LABS: Erythrocyte Sedimentation Rate 105 mm/hr (0-15)
[2021-06-26 18:15] LABS: Immunoglobulin IGM 2774 mg/dL (40-230)
--- NOTE | 2021-06-27 07:07 | ONC FU_ITS ---
Dr. Dove Patient Follow-Up Note Patient: Naima Chacon Unit #: [id number]: 1945 Dicatated By: Marty Dove M.D.Date of Visit:Jun 26, 2021 Onc Med Follow-up/Prog Note Chief Complaint: IgM monoclonal gammopathy. History of Present Illness: This is a 75 year-old woman with IgM monoclonal gammopathy. On her routine laboratory studies she was found to have elevations of the total protein and calculated serum globulin. Further evaluation with protein electrophoresis on 05/15/2020 showed an M spike quantitating at 1.9 g/dL. On immunoelectrophoresis, it was confirmed to be an IgM kappa monoclonal protein. Her serum free light chain assay showed normal kappa free light chain at 5.39 mg/L but with elevated kappa/lambda ratio at 18.59. Her CBC at that time showed normal hemoglobin at 12.4 g with hematocrit 37.4%. The white blood cell count was 7600 and the platelet count was 313,000. I had seen her initially on 07/18/2020. Her CBC showed slightly low hemoglobin at 11.6 g with white blood cell count 5700 and platelet count 279,000. Her sed rate was significantly elevated at 111 mm/hour. Comprehensive metabolic profile showed borderline renal function with BUN 20 and creatinine 1.0 mg/dL. Calcium was 10.1 mg/dL with albumin 4.3 g/dL. The LDH was normal at 126 U/L. Her protein electrophoresis again showed monoclonal protein quantitating at 1.9 g/dL. Her quantitative immunoglobulin levels included IgM elevated at 2854 mg/dL, IgG slightly low at 670 mg/dL, and IgA normal at 81 mg/dL. Her CT scans of the chest, abdomen, and pelvis on 08/01/2020 showed mild diffuse fatty infiltration of the liver, but there was no evidence of lymphadenopathy or hepatosplenomegaly. As she was not overtly symptomatic, I had initially recommended observation/expectant management. Her medical illnesses have otherwise been limited to hyperlipidemia and GERD. She was found to have evidence of fatty infiltration of the liver by CT scan. She has a history of smoking 2 packs of cigarettes daily beginning at age 21, but she quit smoking at age 30. INTERIM HISTORY: On her follow-up laboratory studies on 11/21/2020 she remained mildly anemic with hemoglobin 11.8 g and hematocrit 37%. The white blood cell count was 4300 and the platelet count was 260,000. Sed rate remained significantly elevated at 99 mm/h. LDH was normal at 124 U/L. Protein electrophoresis showed stable M protein at 1.7 g/dL. Her quantitative immunoglobulin levels showed IgM also stable at 2776 mg/dL. At that point she appeared stable clinically, and she continued expectant management. She is seen for a follow-up visit. She has been feeling good generally. She has normal energy and activity tolerance. ECOG score is 0. Her appetite has been good. She has no fever or night sweats. She has no shortness of breath, cough, or chest pain. She has no GI or complaints. She has no significant joint or bone pain. She does not complain of headache or dizziness. She thinks she may be having some slight numbness in her hands intermittently. She has no other focal neurologic symptoms. Medications: Docusate Sodium 1 Tablet (of 100 mg) Oral daily, Famotidine 1 Tablet (of 10 mg) Oral daily, Rosuvastatin Calcium 1 Tablet (of 5 mg) Oral daily Allergies: Tylenol with Codeine #3 Vital Signs: Performed on Jun 26, 2021 14:46 Height - 68.00 in Weight - 162.2 lbs (HIGH) BSA - 1.87 sq.m BMI - 24.66 Temperature - 98.6 F Pulse - 73 /min Respiration - 18 /min BP - 150/74 mm(hg) (HIGH) O2 Sat - 99 % Pain - 0 Fatigue - 0 Physical Examination: Constitutional - She looks good generally, Eyes - Sclerae nonicteric. Conjunctivae clear, ENMT - No lesions noted in the oral cavity, Hematologic/Lymphatic - No cervical, clavicular, or axillary adenopathy, Respiratory - Lungs are clear with good air movement bilaterally, Cardiovascular - Heart rhythm is regular. There is no murmur, gallop, or rub noted, Abdomen - Soft. Liver and spleen are not enlarged. There is no abdominal mass or ascites noted and there is no inguinal adenopathy, Extremities - No edema, Neurologic - No focal neurologic deficits noted. Lab/Imaging: Test performed on Jun 26, 2021 13:38 LDH (Total) 134 U/L Sodium 139 mmol/L Potassium 3.9 mmol/L Chloride 104 mmol/L CO2 23 mmol/L Anion Gap 15.9 BUN 20 mg/dL Creatinine 0.7 mg/dL Cr Clearance (Est) 83.14 mL/min Glucose 103 mg/dL Osmolality - Calculated 291 mOsm/kg Calcium 8.6 mg/dL Protein, Total 7.7 g/dL Albumin 3.7 g/dL Globulin 4.0 g/dL Bilirubin, Total 0.3 mg/dL ALT (SGPT) 14 U/L AST (SGOT) 18 U/L Alkaline Phosphatase 102 IU/L ESR (Sed Rate) 105 mm/hr WBC 6.1 10 3/uL RBC 3.85 10 6/uL HGB 11.1 g/dL HCT 33.9 % MCV 88.1 fl MCH 28.8 pg MCHC 32.7 g/dL RDW 13.4 % Platelet Count 265 10 3/cmm MPV 10.0 fL Neutrophils 3.30 10 3/uL Lymphocytes 2.2 10 3/uL Monocytes 0.5 10 3/uL Eosinophils 0.0 10 3/uL Basophils 0.0 10 3/uL Neutrophil % 54.3 % Lymphocyte % 36.3 % Monocyte % 8.2 % Eosinophil % 0.3 % Basophils % 0.7 % NRBC % 0 % IgA 67 mg/dL The quantitative immunoglobulin levels show similar findings with IgG slightly low at 568 mg/dL, IgA slightly low at 67 mg/dL, and IgM elevated at 2774 mg/dL. The protein electrophoresis results are pending. Problem List: 1. IgM monoclonal gammopathy of undetermined significance. 2. Hyperlipidemia. 3. GERD. 4. Fatty infiltration of the liver. Problems Addressed with this Encounter and Plan: Patient with IgM monoclonal gammopathy of undetermined significance, initially discovered in April 2020. She was not symptomatic and there was no evidence of associated lymphadenopathy or hepatosplenomegaly by CT scan. Laboratory studies also showed mild anemia and significantly elevated sed rate. However, in the absence of any associated symptoms, expectant management was recommended. During follow-up she has remained asymptomatic and her laboratory parameters have thus far remained stable. Her repeat protein electrophoresis is pending, but her quantitative immunoglobulin levels show IgM stable at 2774 mg/dL. She remains mildly anemic and she continues to have a very significantly elevated sed rate. However, as long as she is asymptomatic and not showing evidence of progression, she will continue expectant management. She will be scheduled for repeat laboratory studies in 3 months. I will see her again in 6 months. If there is any significant decline in her hemoglobin/hematocrit levels, she will need to undergo bone marrow aspiration/biopsy. Signed By: Marty Dove M.D. <<Signature on File>>
[2021-06-27 12:38] LABS: PROTEIN, TOTAL 7.4 g/dL (6.1-8.1)
[2021-06-27 15:23] LABS: ABNORMAL PROTEIN BAND 1 1.6 g/dL (NONE DETECTED); ALBUMIN 3.8 g/dL (3.8-4.8); ALPHA 1 GLOBULIN 0.2 g/dL (0.2-0.3); ALPHA 2 GLOBULIN 0.8 g/dL (0.5-0.9); BETA 1 GLOBULIN 0.4 g/dL (0.4-0.6); BETA 2 GLOBULIN 0.3 g/dL (0.2-0.5); GAMMA GLOBULIN 1.9 g/dL (0.8-1.7)
== END 2021-06-26 13:11 | disposition home or self-care (01) ==
LOC: ONCMED 13:15
PROVIDERS: PCP Family Medicine; Visit Provider Internal Medicine Medical Oncology
DX: D47.2 Monoclonal gammopathy (principal); D64.9 Anemia, unspecified; E78.5 Hyperlipidemia, unspecified; K21.9 Gastro-esophageal reflux disease without esophagitis; K76.0 Fatty (change of) liver, not elsewhere classified; Z79.899 Other long term (current) drug therapy
CPT/HCPCS: 36415; 80053; 82784; 83615; 84155; 84165; 85025; 85651; 99214

== ENCOUNTER 2021-09-25 13:26 | Outpatient (CLI) | payer MEDICARE, SELFPAY ==
[2021-09-25 14:24] LABS: Basophils % 0.5 %; Eosinophils % 0.3 %; Hematocrit 35.2 % (37.0-47.0); Hemoglobin 11.6 g/dL (11.5-15.3); Lymphocytes # 2.5 10^3/uL (0.8-4.8); Lymphocytes % 38.5 %; Mean Corpuscular Hemoglobin 28.5 pg (28.0-34.0); Mean Corpuscular Volume 86.5 fl (81-99); Mean Platelet Volume 9.7 fL (7.4-10.4); Monocytes # 0.5 10^3/uL (0.2-0.9); Monocytes % 7.5 %; Neutrophils # 3.42 10^3/uL (1.8-7.7); Nucleated Red Blood Cells % 0 %; Platelet Count 265 10^3/cmm (130-400); Red Blood Count 4.07 10^6/uL (4.1-5.3); Red Cell Distribution Width 13.2 % (12.1-15.1); White Blood Count 6.4 10^3/uL (4.0-10.0)
[2021-09-25 15:13] LABS: Alanine Aminotransferase 14 U/L (0-33); Albumin Level 3.9 g/dL (3.5-5.2); Alkaline Phosphatase 94 IU/L (35-105); Anion Gap 19.2 (5-19); Aspartate Amino Transferase 18 U/L (0-32); Blood Urea Nitrogen 19 mg/dL (8-23); Calcium 8.5 mg/dL (8.5-10.5); Carbon Dioxide 20 mmol/L (22-29); Chloride 104 mmol/L (98-107); Globulin 3.6 g/dL (1.3-4.6); Glucose 136 mg/dL (65-115); Immunoglobulin IGA 71 mg/dL (70-400); Immunoglobulin IGG 626 mg/dL (700-1600); Lactate Dehydrogenase 156 U/L (135-214); Osmolality Calculated 292 mOsm/kg (285-295); Potassium 4.2 mmol/L (3.5-5.1); Sodium 139 mmol/L (136-145); Total Bilirubin 0.3 mg/dL (0.15-1.2); Total Protein 7.5 g/dL (6.6-8.7)
[2021-09-25 15:43] LABS: Immunoglobulin IGM 2684 mg/dL (40-230)
[2021-09-26 15:30] LABS: Erythrocyte Sedimentation Rate 96 mm/hr (0-15)
[2021-09-27 08:41] LABS: PROTEIN, TOTAL 7.5 g/dL (6.1-8.1)
[2021-09-27 14:58] LABS: ABNORMAL PROTEIN BAND 1 1.7 g/dL (NONE DETECTED); ALBUMIN 3.8 g/dL (3.8-4.8); ALPHA 1 GLOBULIN 0.3 g/dL (0.2-0.3); ALPHA 2 GLOBULIN 0.8 g/dL (0.5-0.9); BETA 1 GLOBULIN 0.4 g/dL (0.4-0.6); BETA 2 GLOBULIN 0.3 g/dL (0.2-0.5)
== END 2021-09-25 13:27 | disposition home or self-care (01) ==
LOC: ONCMED 13:28
PROVIDERS: PCP Family Medicine; Visit Provider Internal Medicine Medical Oncology
DX: D47.2 Monoclonal gammopathy (principal)
CPT/HCPCS: 36415; 80053; 82784; 83615; 84155; 84165; 85025; 85651

== ENCOUNTER 2021-11-29 08:15 | Outpatient (CLI) | payer MEDICARE, SELFPAY ==
--- NOTE | 2021-11-29 08:27 | MM_ITS ---
WS: [id number] BILATERAL SCREENING DIGITAL MAMMOGRAM WITH CAD HISTORY: SCREENING COMPARISON: 09/25/2020, 08/18/2019 Bilateral CC and MLO views submitted. Computer aided detection analyzed. Breast composition: There are scattered areas of fibroglandular density. No suspicious masses, microc alcifications or architectural distortion. Bilateral calcifications in each breast. MM/[id number] IMPRESSION: BI-RADS: 2-Benign FOLLOW UP: 1 Year Follow-up
== END 2021-11-29 08:16 | disposition home or self-care (01) ==
PROVIDERS: PCP Family Medicine; Visit Provider Family Medicine
DX: Z12.31 Encounter for screening mammogram for malignant neoplasm of breast (principal)
CPT/HCPCS: 77067

== ENCOUNTER 2021-12-24 12:45 | Outpatient (CLI) | payer MEDICARE, SELFPAY ==
[2021-12-24 13:32] LABS: Basophils # 0.1 10^3/uL (0.0-0.1); Basophils % 0.8 %; Eosinophils % 0.2 %; Erythrocyte Sedimentation Rate 56 mm/hr (0-15); Hematocrit 37.4 % (37.0-47.0); Hemoglobin 12.2 g/dL (11.5-15.3); Lymphocytes # 2.2 10^3/uL (0.8-4.8); Lymphocytes % 34.3 %; Mean Corpuscular HGB Conc 32.6 g/dL (30.0-36.0); Mean Corpuscular Hemoglobin 28.6 pg (28.0-34.0); Mean Corpuscular Volume 87.8 fl (81-99); Mean Platelet Volume 10.4 fL (7.4-10.4); Monocytes # 0.5 10^3/uL (0.2-0.9); Monocytes % 8.1 %; Neutrophils # 3.63 10^3/uL (1.8-7.7); Neutrophils % 56.3 %; Nucleated Red Blood Cells % 0 %; Platelet Count 254 10^3/cmm (130-400); Red Blood Count 4.26 10^6/uL (4.1-5.3); Red Cell Distribution Width 13.3 % (12.1-15.1); White Blood Count 6.4 10^3/uL (4.0-10.0)
[2021-12-24 14:03] LABS: Alanine Aminotransferase 16 U/L (0-33); Albumin Level 4.1 g/dL (3.5-5.2); Alkaline Phosphatase 103 IU/L (35-105); Anion Gap 16.1 (5-19); Aspartate Amino Transferase 18 U/L (0-32); Blood Urea Nitrogen 19 mg/dL (8-23); Carbon Dioxide 22 mmol/L (22-29); Chloride 103 mmol/L (98-107); Globulin 3.8 g/dL (1.3-4.6); Glucose 100 mg/dL (65-115); Immunoglobulin IGA 74 mg/dL (70-400); Immunoglobulin IGG 564 mg/dL (700-1600); Lactate Dehydrogenase 133 U/L (135-214); Osmolality Calculated 286 mOsm/kg (285-295); Potassium 4.1 mmol/L (3.5-5.1); Sodium 137 mmol/L (136-145); Total Bilirubin 0.2 mg/dL (0.15-1.2); Total Protein 7.9 g/dL (6.6-8.7)
[2021-12-24 14:30] LABS: Immunoglobulin IGM 2594 mg/dL (40-230)
[2021-12-25 09:47] LABS: PROTEIN, TOTAL 7.9 g/dL (6.1-8.1)
[2021-12-25 16:57] LABS: ABNORMAL PROTEIN BAND 1 1.9 g/dL (NONE DETECTED); ALPHA 1 GLOBULIN 0.3 g/dL (0.2-0.3); ALPHA 2 GLOBULIN 0.8 g/dL (0.5-0.9); BETA 1 GLOBULIN 0.4 g/dL (0.4-0.6); BETA 2 GLOBULIN 0.3 g/dL (0.2-0.5); GAMMA GLOBULIN 2.1 g/dL (0.8-1.7)
== END 2021-12-24 12:46 | disposition home or self-care (01) ==
LOC: ONCMED 12:48
PROVIDERS: PCP Family Medicine; Visit Provider Internal Medicine Medical Oncology
DX: D47.2 Monoclonal gammopathy (principal)
CPT/HCPCS: 36415; 80053; 82784; 83615; 84155; 84165; 85025; 85651

== ENCOUNTER 2022-01-02 08:37 | Outpatient (CLI) | payer MEDICARE, SELFPAY ==
--- NOTE | 2022-01-02 10:20 | ONC FU_ITS ---
Sabiha Ma Progress Note Patient: Naima Chacon Unit #: [id number]: [id number] Dicatated By: Sabiha Ma N.P.Date of Visit:Jan 02, 2022 Onc MED Follow-up/Prog Note Chief Complaint: IgM monoclonal gammopathy. History of Present Illness: This is a 75 year-old woman with IgM monoclonal gammopathy. On her routine laboratory studies she was found to have elevations of the total protein and calculated serum globulin. Further evaluation with protein electrophoresis on 05/15/2020 showed an M spike quantitating at 1.9 g/dL. On immunoelectrophoresis, it was confirmed to be an IgM kappa monoclonal protein. Her serum free light chain assay showed normal kappa free light chain at 5.39 mg/L but with elevated kappa/lambda ratio at 18.59. Her CBC at that time showed normal hemoglobin at 12.4 g with hematocrit 37.4%. The white blood cell count was 7600 and the platelet count was 313,000. I had seen her initially on 07/18/2020. Her CBC showed slightly low hemoglobin at 11.6 g with white blood cell count 5700 and platelet count 279,000. Her sed rate was significantly elevated at 111 mm/hour. Comprehensive metabolic profile showed borderline renal function with BUN 20 and creatinine 1.0 mg/dL. Calcium was 10.1 mg/dL with albumin 4.3 g/dL. The LDH was normal at 126 U/L. Her protein electrophoresis again showed monoclonal protein quantitating at 1.9 g/dL. Her quantitative immunoglobulin levels included IgM elevated at 2854 mg/dL, IgG slightly low at 670 mg/dL, and IgA normal at 81 mg/dL. Her CT scans of the chest, abdomen, and pelvis on 08/01/2020 showed mild diffuse fatty infiltration of the liver, but there was no evidence of lymphadenopathy or hepatosplenomegaly. As she was not overtly symptomatic, I had initially recommended observation/expectant management. Her medical illnesses have otherwise been limited to hyperlipidemia and GERD. She was found to have evidence of fatty infiltration of the liver by CT scan. She has a history of smoking 2 packs of cigarettes daily beginning at age 21, but she quit smoking at age 30. INTERIM HISTORY: On her follow-up laboratory studies on 11/21/2020 she remained mildly anemic with hemoglobin 11.8 g and hematocrit 37%. The white blood cell count was 4300 and the platelet count was 260,000. Sed rate remained significantly elevated at 99 mm/h. LDH was normal at 124 U/L. Protein electrophoresis showed stable M protein at 1.7 g/dL. Her quantitative immunoglobulin levels showed IgM also stable at 2776 mg/dL. At that point she appeared stable clinically, and she continued expectant management. Patient presents today for follow-up. She has been feeling well. She is very active. ECOG 0. Her appetite has been good. She denies fever, chills, night sweats. No shortness of breath, chest pain or cough. She denies GI or problems. No joint or muscle pain. Review Of Symptoms:See above. Past Medical History: Fatty liver Gastroesophageal reflux disease (Treated) Hypercholesterolemia (Treated) Past Surgical History: Bladder sling Covid vaccine #2 in 2020 Covid vaccine #1 in 2020 Colonoscopy in 2008 Tubal ligation in 1980 Allergies: Tylenol with Codeine #3 Medications: Docusate Sodium 1 Tablet (of 100 mg) Oral daily Famotidine 1 Tablet (of 10 mg) Oral daily Rosuvastatin Calcium 1 Tablet (of 5 mg) Oral daily Vitamin E 2 Tablet Oral daily Family History: Ms. Chacon's mother is : Lung Cancer at age 82. Ms. Chacon's father is : myocardial infarction at age 60. Father in his 60s with a heart attack. Mother with lung cancer at age 82. A half-brother has diabetes. A half-sister is in good health. Social History: Ms. Chacon is . Ms. Chacon quit smoking 45 years ago but had smoked for 7 years. She has no history of drinking. She has a history of smoking 2 packs of cigarettes daily beginning at age 21. She also had alcohol use at that time. She quit both at age 30. Physical Examination: Performed on Jan 02, 2022 08:55: Height - 68.00 in, BP - 155/77 mm(hg) (HIGH), Performed on Jan 02, 2022 08:52: Height - 68.00 in, Weight - 167.8 lbs (HIGH), BSA - 1.90 sq.m, BMI - 25.51, Temperature - 98.5 F, Pulse - 76 /min, Respiration - 16 /min, BP - 174/74 mm(hg) (HIGH), O2 Sat - 99 %, Pain - 0, and Fatigue - 0. Performance Status: 0 - Fully active, able to carry on all predisease activities without restrictions. (ECOG) Constitutional Alert, cooperative, oriented. Mood and affect appropriate. Appears close to chronological age. Well nourished. Well developed. Head Normocephalic; no scars. Eyes Conjunctivae and sclerae are clear and without icterus. Pupils are reactive and equal. Respiratory Lungs are clear to auscultation without rhonchi or wheezing. Cardiovascular Regular rate and rhythm of heart without murmurs, gallops or rubs. Abdomen Non-tender, non-distended, no masses, ascites or hepatosplenomegaly. Good bowel sounds. No guarding or rebound tenderness. Extremities No visible deformities, no cyanosis, clubbing or edema. Pulses 3+ and equal bilaterally. Musculoskeletal No tenderness or swelling, normal range of motion without obvious weakness. Psychiatric Alert and oriented times three. Coherent speech. Verbalizes understanding of our discussions today. Laboratory: Test performed on Sep 25, 2021 14:10 LDH (Total) 156 U/L Sodium 139 mmol/L Potassium 4.2 mmol/L Chloride 104 mmol/L CO2 20 mmol/L Anion Gap 19.2 BUN 19 mg/dL Creatinine 0.8 mg/dL Cr Clearance (Est) 72.7400 mL/min Glucose 136 mg/dL Osmolality - Calculated 292 mOsm/kg Calcium 8.5 mg/dL Protein, Total 7.5 g/dL Albumin 3.9 g/dL Globulin 3.6 g/dL Bilirubin, Total 0.3 mg/dL ALT (SGPT) 14 U/L AST (SGOT) 18 U/L Alkaline Phosphatase 94 IU/L ESR (Sed Rate) 96 mm/hr WBC 6.4 10 3/uL RBC 4.07 10 6/uL HGB 11.6 g/dL HCT 35.2 % MCV 86.5 fl MCH 28.5 pg MCHC 33.0 g/dL RDW 13.2 % Platelet Count 265 10 3/cmm MPV 9.7 fL Neutrophils 3.42 10 3/uL Lymphocytes 2.5 10 3/uL Monocytes 0.5 10 3/uL Eosinophils 0.0 10 3/uL Basophils 0.0 10 3/uL Neutrophil % 53.0 % Lymphocyte % 38.5 % Monocyte % 7.5 % Eosinophil % 0.3 % Basophils % 0.5 % NRBC % 0 % IgA 71 mg/dL Impression: 1. IgM monoclonal gammopathy of undetermined significance. 2. Hyperlipidemia. 3. GERD. 4. Fatty infiltration of the liver. Plan: Patient with IgM monoclonal gammopathy of undetermined significance, initially discovered in April 2020. She was not symptomatic and there was no evidence of associated lymphadenopathy or hepatosplenomegaly by CT scan. Laboratory studies also showed mild anemia and significantly elevated sed rate. However, in the absence of any associated symptoms, expectant management was recommended. Patient has remained asymptomatic. She is actually feeling well. We discussed her labs in detail. At this point her hemoglobin and hematocrit are within normal limits. Her sed rate is 56 down from 96. Her LDH is at 133 down from 156, her abnormal protein band has increased slightly from 1.7-1.9 and her IgM is at 2594 down from 2684. At this point we will continue monitoring. She will return to the clinic in 3 months with labs. Signed By: Sabiha Ma N.P. <<Signature on File>>
== END 2022-01-02 08:38 | disposition home or self-care (01) ==
PROVIDERS: PCP Family Medicine; Visit Provider Nurse Practitioner Family
DX: D47.2 Monoclonal gammopathy (principal); E78.5 Hyperlipidemia, unspecified; K21.9 Gastro-esophageal reflux disease without esophagitis; K76.0 Fatty (change of) liver, not elsewhere classified; Z79.899 Other long term (current) drug therapy; Z87.891 Personal history of nicotine dependence
CPT/HCPCS: 99214

== ENCOUNTER 2022-04-28 11:30 | Oncology outpatient (recurring) (ONCR) | payer MEDICARE, SELFPAY ==
[2022-04-28 12:43] LABS: Basophils % 0.6 %; Eosinophils % 0.1 %; Hematocrit 36.2 % (37.0-47.0); Hemoglobin 11.9 g/dL (11.5-15.3); Lymphocytes # 2.5 10^3/uL (0.8-4.8); Mean Corpuscular HGB Conc 32.9 g/dL (30.0-36.0); Mean Corpuscular Hemoglobin 28.3 pg (28.0-34.0); Mean Corpuscular Volume 86.2 fl (81-99); Mean Platelet Volume 9.9 fL (7.4-10.4); Monocytes # 0.6 10^3/uL (0.2-0.9); Monocytes % 8.5 %; Neutrophils # 3.99 10^3/uL (1.8-7.7); Neutrophils % 55.4 %; Nucleated Red Blood Cells % 0 %; Platelet Count 294 10^3/cmm (130-400); Red Cell Distribution Width 13.9 % (12.1-15.1); White Blood Count 7.2 10^3/uL (4.0-10.0)
[2022-04-28 12:52] LABS: Erythrocyte Sedimentation Rate 31 mm/hr (0-15)
[2022-04-28 13:27] LABS: Alanine Aminotransferase 16 U/L (0-33); Albumin Level 4.1 g/dL (3.5-5.2); Alkaline Phosphatase 108 IU/L (35-105); Anion Gap 15.8 (5-19); Aspartate Amino Transferase 19 U/L (0-32); Blood Urea Nitrogen 22 mg/dL (8-23); Calcium 9.2 mg/dL (8.5-10.5); Carbon Dioxide 25 mmol/L (22-29); Chloride 101 mmol/L (98-107); Globulin 4.5 g/dL (1.3-4.6); Glucose 94 mg/dL (65-115); Immunoglobulin IGA 67 mg/dL (70-400); Immunoglobulin IGG 558 mg/dL (700-1600); Lactate Dehydrogenase 139 U/L (135-214); Osmolality Calculated 287 mOsm/kg (285-295); Potassium 4.8 mmol/L (3.5-5.1); Sodium 137 mmol/L (136-145); Total Bilirubin 0.4 mg/dL (0.15-1.2); Total Protein 8.6 g/dL (6.6-8.7)
[2022-04-28 13:51] LABS: Immunoglobulin IGM 2993 mg/dL (40-230)
[2022-04-29 16:28] LABS: PROTEIN, TOTAL 8.2 g/dL (6.1-8.1)
[2022-04-30 13:28] LABS: ABNORMAL PROTEIN BAND 1 1.8 g/dL (NONE DETECTED); ALBUMIN 4.1 g/dL (3.8-4.8); ALPHA 1 GLOBULIN 0.3 g/dL (0.2-0.3); ALPHA 2 GLOBULIN 0.9 g/dL (0.5-0.9); BETA 1 GLOBULIN 0.4 g/dL (0.4-0.6); BETA 2 GLOBULIN 0.3 g/dL (0.2-0.5); GAMMA GLOBULIN 2.2 g/dL (0.8-1.7)
== END 2022-05-18 23:59 | disposition home or self-care (01) ==
PROVIDERS: Nurse Practitioner Family; PCP Family Medicine; Referring Provider Family Medicine; Visit Provider Internal Medicine Medical Oncology
DX: D47.2 Monoclonal gammopathy (principal)
CPT/HCPCS: 36415; 80053; 82784; 83615; 84155; 84165; 85025; 85651

== ENCOUNTER 2022-05-27 13:41 | Oncology outpatient (recurring) (ONCR) | payer MEDICARE, SELFPAY | END 2022-06-18 23:59 | disposition home or self-care (01) | PROVIDERS: PCP Family Medicine; Referring Provider Family Medicine; Visit Provider Internal Medicine Medical Oncology | DX: D47.2 Monoclonal gammopathy (principal); D64.9 Anemia, unspecified | CPT/HCPCS: 99214; G0463 ==

== ENCOUNTER 2022-07-16 13:08 | Outpatient (CLI) | payer MEDICARE, SELFPAY ==
--- NOTE | 2022-07-16 13:16 | XR_ITS ---
WS: [id number] SCREENING DEXA SCAN [facility] CLINICAL INFORMATION: POSTMENOPAUSAL COMPARISON: June 13, 2020 FINDINGS: The L1-L4 bone mineral density measures 1.214 g/cm2. This corresponds to a T score score of 0.3 and Z score of 1.7. Left femoral neck bone mineral density measures 0.893 g/cm2. This corresponds to a T score of -0.9 an d Z score of 0.5. Right femoral neck bone mineral density measures 0.947 g/cm2. This corresponds to a T score -0.5of an d Z score of 1.0. Mean femoral neck bone mineral density measures 0.920 g/cm2. This corresponds to a T score of -0.7 an d Z score of 0.8. XR/XR DEXA axial skeleton* [id number] IMPRESSION: Normal bone mineralization lumbar spine and femoral necks.. Patient's FRAX calculated 10 year probability for major osteoporotic fracture i s 9.3 % and osteoporotic hip fracture is 1.3%. Bone mineralization lumbar spine increased +3.0% since 2019. Bone mineralization femoral necks has decreased -0.3% since 2020.
== END 2022-07-16 13:09 | disposition home or self-care (01) ==
LOC: RAD 13:08
PROVIDERS: PCP Family Medicine; Visit Provider Family Medicine
DX: Z78.0 Asymptomatic menopausal state (principal)
CPT/HCPCS: 77080

== ENCOUNTER 2022-09-01 08:24 | Oncology outpatient (recurring) (ONCR) | payer MEDICARE, SELFPAY ==
[2022-09-01 09:00] LABS: Basophils % 0.4 %; Eosinophils % 0.4 %; Hematocrit 38.2 % (37.0-47.0); Hemoglobin 12.4 g/dL (11.5-15.3); Lymphocytes # 1.7 10^3/uL (0.8-4.8); Mean Corpuscular HGB Conc 32.5 g/dL (30.0-36.0); Mean Corpuscular Hemoglobin 28.8 pg (28.0-34.0); Mean Corpuscular Volume 88.8 fl (81-99); Mean Platelet Volume 9.6 fL (7.4-10.4); Monocytes # 0.5 10^3/uL (0.2-0.9); Monocytes % 9.6 %; Neutrophils # 2.46 10^3/uL (1.8-7.7); Neutrophils % 52.4 %; Nucleated Red Blood Cells % 0 %; Platelet Count 285 10^3/cmm (130-400); Red Cell Distribution Width 13.3 % (12.1-15.1); White Blood Count 4.7 10^3/uL (4.0-10.0)
[2022-09-01 09:12] LABS: Erythrocyte Sedimentation Rate 34 mm/hr (0-15)
[2022-09-01 09:21] LABS: Alanine Aminotransferase 14 U/L (0-33); Albumin Level 4.2 g/dL (3.5-5.2); Alkaline Phosphatase 103 U/L (35-105); Anion Gap 14.5 (5-19); Aspartate Amino Transferase 20 U/L (0-32); Blood Urea Nitrogen 21 mg/dL (8-23); Calcium 9.6 mg/dL (8.5-10.5); Carbon Dioxide 26 mmol/L (22-29); Chloride 101 mmol/L (98-107); Globulin 4.3 g/dL (1.3-4.6); Glucose 96 mg/dL (65-115); Immunoglobulin IGA 85 mg/dL (70-400); Immunoglobulin IGG 625 mg/dL (700-1600); Lactate Dehydrogenase 136 U/L (135-214); Osmolality Calculated 287 mOsm/kg (285-295); Potassium 4.5 mmol/L (3.5-5.1); Sodium 137 mmol/L (136-145); Total Bilirubin 0.6 mg/dL (0.15-1.2); Total Protein 8.5 g/dL (6.6-8.7)
[2022-09-01 09:22] LABS: Chol HDL Ratio 2.16 mg/dL (0.0-4.40); Cholesterol 175 mg/dL (0-200); HDL Cholesterol 81 mg/dL (60-100); LDL Cholesterol Calculated 73 mg/dL (50-129); Triglycerides 104 mg/dL (0-150)
[2022-09-01 09:47] LABS: Immunoglobulin IGM 3027 mg/dL (40-230)
[2022-09-02 06:42] LABS: PROTEIN, TOTAL 8.4 g/dL (6.1-8.1)
[2022-09-02 15:42] LABS: ABNORMAL PROTEIN BAND 1 1.8 g/dL (NONE DETECTED); ALBUMIN 4.4 g/dL (3.8-4.8); ALPHA 1 GLOBULIN 0.3 g/dL (0.2-0.3); ALPHA 2 GLOBULIN 0.9 g/dL (0.5-0.9); BETA 1 GLOBULIN 0.4 g/dL (0.4-0.6); BETA 2 GLOBULIN 0.3 g/dL (0.2-0.5); GAMMA GLOBULIN 2.2 g/dL (0.8-1.7)
== END 2022-09-17 23:59 | disposition home or self-care (01) ==
LOC: ONCMED 08:25
PROVIDERS: Nurse Practitioner Family; PCP Family Medicine; Visit Provider Internal Medicine Medical Oncology
DX: D47.2 Monoclonal gammopathy (principal); E78.5 Hyperlipidemia, unspecified
CPT/HCPCS: 36415; 80053; 80061; 82784; 83615; 84155; 84165; 85025; 85651; 86334

== ENCOUNTER 2022-09-15 13:14 | Oncology outpatient (recurring) (ONCR) | payer MEDICARE, SELFPAY | END 2022-09-17 23:59 | disposition home or self-care (01) | PROVIDERS: PCP Family Medicine; Visit Provider Internal Medicine Medical Oncology | DX: D47.2 Monoclonal gammopathy (principal); D64.9 Anemia, unspecified; Z79.899 Other long term (current) drug therapy; Z87.891 Personal history of nicotine dependence | CPT/HCPCS: 99214 ==

== ENCOUNTER 2022-12-04 08:58 | Outpatient (CLI) | payer MEDICARE, SELFPAY ==
--- NOTE | 2022-12-04 09:12 | MM_ITS ---
WS: [id number] Bilateral screening 3D tomosynthesis digital mammogram, 12/04/2022 Clinical Data: SCREENING Comparison: 11/29/2021, 09/25/2020, 08/18/2019, 06/09/2018, 05/20/2017, 03/24/2016, 03/02/2015, 02/15/2014, , 05/25/2012, 11/27/2011, 11/19/2011, 01/27/2011, 01/24/2010. Findings: The breast parenchymal pattern shows glandular tissue. No spiculated masses or clustered calcificatio ns are seen. There are no secondary signs of carcinoma. There are mole markers on both breasts. MM/[id number] Impression: 1. Negative bilateral mammogram unchanged. 2. Recommend annual screening mammograms. BIRADS: 1-Negative FOLLOW UP: 1 Year Follow-up The CAD grade checker was used.
== END 2022-12-04 08:59 | disposition home or self-care (01) ==
LOC: RAD 08:58
PROVIDERS: PCP Family Medicine; Visit Provider Family Medicine
DX: Z12.31 Encounter for screening mammogram for malignant neoplasm of breast (principal)
CPT/HCPCS: 77063; 77067

== ENCOUNTER 2023-12-07 11:45 | Outpatient (CLI) | payer MEDICARE, SELFPAY ==
--- NOTE | 2023-12-07 11:49 | MM_ITS ---
WS: [id number] BILATERAL 3D TOMOSYNTHESIS DIGITAL SCREENING MAMMOGRAPHY WITH CAD CLINICAL INFORMATION: SCREENING HISTORY: Screening mammogram. No current complaints. COMPARISON: 12/04/2022 TECHNIQUE: Bilateral CC and MLO views. FINDINGS: Scattered fibroglandular densities bilaterally. No suspicious focal mass, asymmetry, calcifications, or architectural distortion. No evidence of malignancy. Punctate and lucent centered calcifications. IMPRESSION: MM/[id number] BI-RADS: 2-Benign FOLLOW UP: 1 Year Follow-up Recommend return to annual screening mammography.
== END 2023-12-07 11:46 | disposition home or self-care (01) ==
LOC: RAD 11:46
PROVIDERS: PCP Family Medicine; Visit Provider Family Medicine
DX: Z12.31 Encounter for screening mammogram for malignant neoplasm of breast (principal); R92.323 Mammographic fibroglandular density, bilateral breasts; R92.1 Mammographic calcification found on diagnostic imaging of breast
CPT/HCPCS: 77063; 77067

== ENCOUNTER → 2023-12-16 15:04 | Outpatient (BNVA) | payer MEDICARE, SELFPAY | PROVIDERS: PCP Family Medicine; Visit Provider Nurse Practitioner Family | DX: L72.0 Epidermal cyst (principal); S81.812A Laceration without foreign body, left lower leg, initial encounter; S81.811A Laceration without foreign body, right lower leg, initial encounter; L82.1 Other seborrheic keratosis; I78.8 Other diseases of capillaries; L82.0 Inflamed seborrheic keratosis; D18.01 Hemangioma of skin and subcutaneous tissue; L98.8 Other specified disorders of the skin and subcutaneous tissue; L57.8 Other skin changes due to chronic exposure to nonionizing radiation; X58.XXXA Exposure to other specified factors, initial encounter | CPT/HCPCS: 17110; 99214 ==

== ENCOUNTER 2024-09-07 14:24 | Outpatient (CLI) | payer MEDICARE, SELFPAY ==
--- NOTE | 2024-09-07 14:27 | XR_ITS ---
WS: [id number] SCREENING DEXA SCAN [facility] CLINICAL INFORMATION: POSTMENOPAUSAL COMPARISON: 2021 FINDINGS: The L1-L4 bone mineral density measures 1.221 g/cm2. This corresponds to a T score score of 0.3 and Z score of 1.6. Left femoral neck bone mineral density measures 0.884 g/cm2. This corresponds to a T score of -1.0 an d Z score of 0.5. Right femoral neck bone mineral density measures 0.927 g/cm2. This corresponds to a T score -0.6of an d Z score of 0.8. Mean femoral neck bone mineral density measures 0.906 g/cm2. This corresponds to a T score of -0.8 an d Z score of 0.7. XR/XR DEXA axial skeleton* [id number] IMPRESSION: Normal bone mineralization lumbar spine and femoral necks. Patient's FRAX calculated 10 year probability for major osteoporotic fracture i s 10.2% and osteoporotic hip fracture is 1.6%. Bone mineral density lumbar spine increased 0.6% Bone mineral density femoral necks decreased -1.5%
== END 2024-09-07 14:25 | disposition home or self-care (01) ==
LOC: RAD 14:26
PROVIDERS: PCP Family Medicine; Visit Provider Family Medicine
DX: Z13.820 Encounter for screening for osteoporosis (principal); Z78.0 Asymptomatic menopausal state
CPT/HCPCS: 77080

== ENCOUNTER 2024-12-12 11:32 | Outpatient (CLI) | payer MEDICARE, SELFPAY ==
--- NOTE | 2024-12-12 11:38 | MM_ITS ---
WS: [id number] BILATERAL 3D TOMOSYNTHESIS DIGITAL SCREENING MAMMOGRAPHY WITH CAD CLINICAL INFORMATION: SCREENING HISTORY: Screening mammogram. No current complaints. COMPARISON: 2023 TECHNIQUE: Bilateral CC and MLO views. FINDINGS: Scattered fibroglandular densities bilaterally. No suspicious focal mass, asymmetry, calcifications, or architectural distortion. No evidence of malignancy. Lucent centered calcifications. MM/MM [facility] tomosynthesis [id number] IMPRESSION: DENSITY: There are scattered areas of fibroglandular density. BI-RADS: 2 - Benign. FOLLOW UP: 1 Year Follow-up Recommend return to annual screening mammography.
== END 2024-12-12 11:33 | disposition home or self-care (01) ==
LOC: RAD 11:35
PROVIDERS: PCP Family Medicine; Visit Provider Family Medicine
DX: Z12.31 Encounter for screening mammogram for malignant neoplasm of breast (principal); R92.323 Mammographic fibroglandular density, bilateral breasts; R92.1 Mammographic calcification found on diagnostic imaging of breast
CPT/HCPCS: 77063; 77067

== ENCOUNTER → 2024-12-22 08:54 | Outpatient (BNVA) | payer MEDICARE, SELFPAY | PROVIDERS: PCP Family Medicine; Visit Provider Nurse Practitioner Family | DX: L72.0 Epidermal cyst (principal); I78.8 Other diseases of capillaries; D18.01 Hemangioma of skin and subcutaneous tissue; L98.8 Other specified disorders of the skin and subcutaneous tissue; L57.8 Other skin changes due to chronic exposure to nonionizing radiation; L82.0 Inflamed seborrheic keratosis; L53.8 Other specified erythematous conditions; L29.89 Other pruritus | CPT/HCPCS: 17110; 99213 ==